=== PATIENT | female | born 1985 | race Caucasian/White ===

== ENCOUNTER 2022-05-27 10:31 | Outpatient (CLI) | payer BC, SELFPAY ==
[2022-05-27 22:00] LABS: Albumin* 4.3 g/dL (3.3-5.0)
[2022-05-27 22:01] LABS: Chloride* 105 mmol/L (96-114); Potassium* 4.5 mmol/L (3.6-5.1); Sodium* 138 mmol/L (135-149)
[2022-05-27 22:03] LABS: Aspartate Amino Transferase* 22 U/L (12-35); Bilirubin Total* 0.4 mg/dL (0.1-1.5); Blood Urea Nitrogen* 15 mg/dL (5-24); Carbon Dioxide* 27 mmol/L (20-32); Cholesterol* 252 mg/dL (90-199); Creatinine* 0.6 mg/dL (0.5-1.5); Estimated Glomerular Filt Rate 120 ml/min; Total Protein* 7.6 g/dL (6.0-8.3)
[2022-05-27 22:04] LABS: Alanine Aminotransferase* 14 U/L (4-35); Alkaline Phosphatase* 106 U/L (40-150); Calcium* 9.1 mg/dL (8.4-10.6); Glucose* 97 mg/dL (60-115); HDL Cholesterol* 55 mg/dL (>=50); LDL Cholesterol Calculated 168 mg/dL (<100); Triglycerides* 143 mg/dL (40-149)
[2022-05-27 22:39] LABS: TSH With Reflex to FT4* 0.274 uIU/mL (0.270-4.200)
== END 2022-05-27 10:32 | disposition home or self-care (01) ==
PROVIDERS: PCP Physician Assistant Medical; Visit Provider Physician Assistant Medical
DX: Z01.419 Encounter for gynecological examination (general) (routine) without abnormal findings (principal); R22.31 Localized swelling, mass and lump, right upper limb; F41.9 Anxiety disorder, unspecified; Z13.6 Encounter for screening for cardiovascular disorders; Z13.29 Encounter for screening for other suspected endocrine disorder
CPT/HCPCS: 80053; 80061; 84443; 87624; 88175

== ENCOUNTER 2022-07-20 08:02 | Outpatient (CLI) | payer BC, SELFPAY ==
--- NOTE | 2022-07-20 08:15 | MR_ITS ---
[address] [address] Phone:?[phone] Fax:?[phone] Referring Physician Information: Violeta Anthony [address] [facility] [address] Phone:?[phone] Fax:?[phone] Patient:Peter Nichols D.O.B:?1985 Sex:?Female Phone:?[phone] [facility] MRN:?[id number] Exam Date:?07/20/2022 ? EXAM: MRI of the RIGHT KNEE, without contrast CLINICAL HISTORY: Right knee pain. Evaluate for medial meniscal pathology. COMPARISONS: None available. TECHNICAL: MR sequences of the right knee: sagittals: PD, PDFS coronals: PD, STIR axials: PD, T2 FS CONTRAST: None SEDATION: None FINDINGS: Bones: No fracture, bone marrow contusion, or other suspicious bone marrow signal abnormality. Patellofemoral joint: Cartilage: Intact. Retinacula: The medial and lateral retinacula are intact. Fat pads: Edema-like signal within the superolateral portion of the infrapatellar fat pad is associated with patellar tendon-lateral femoral condyle friction/patellar maltracking. The Insall Salvati index measures approximately 1.30. The lateral trochlear inclination angle measures approximately 19 degrees. The tibial tubercle to trochlear groove distance measures approximately 2.1 cm. Knee joint: Effusion: Physiologic amount of joint fluid. Popliteal cyst: None. Intra-articular bodies: None. Medial compartment: Medial meniscus: Intact. Cartilage: Intact. Lateral compartment: Lateral meniscus: Intact. Cartilage: Intact. Ligaments: Anterior cruciate ligament: Intact. Posterior cruciate ligament: Intact. Medial collateral ligament: Intact. Posterior oblique ligament: Intact. Fibular collateral ligament: Intact. Posterolateral corner: The distal biceps femoris tendon, iliotibial band, popliteus tendon, popliteus muscle, popliteofibular ligament, and arcuate ligament are intact. Posteromedial corner: The semimembranosus and pes anserine tendons are intact. Extensor mechanism: Patellar tendon: Intact. Quadriceps tendon: Intact, without tendinopathy. IMPRESSION: 1. Edema-like signal within the superolateral portion of the infrapatellar fat pad is associated with patellar tendon-lateral femoral condyle friction/patellar maltracking. The tibial tubercle to trochlear groove distance measures approximately 2.1 cm. Borderline increased Insall Salvati index of approximately 1.30. 2. Otherwise, unremarkable MRI of the right knee without osseous pathology, ligamentous injury, tendinous pathology, meniscal tear, or chondral pathology. RCB Electronically signed on 07/20/2022 11:58:00 AM by Silvestre Smith M.D.
== END 2022-07-20 08:03 | disposition home or self-care (01) ==
LOC: MRI 08:03
PROVIDERS: PCP Physician Assistant Medical; Visit Provider Physician Assistant Surgical
DX: M25.561 Pain in right knee (principal)
CPT/HCPCS: 73721

== ENCOUNTER 2022-07-29 09:13 | Outpatient (RCR) | payer BC, SELFPAY | END 2023-05-12 23:59 | disposition home or self-care (01) | PROVIDERS: PCP Physician Assistant Medical; Visit Provider Physician Assistant Surgical | DX: M25.561 Pain in right knee (principal); Z51.89 Encounter for other specified aftercare | CPT/HCPCS: 97110; 97162 ==

== ENCOUNTER 2022-08-30 09:43 | Emergency (ER) | payer BC, SELFPAY ==
[2022-08-30 10:07] VITALS: BP 109/67; PULSE 89; RESP 18; TEMP 36.6; O2SAT 100; BMI 28.0
--- NOTE | 2022-08-30 10:28 | ED_ITS ---
HPI - General Adult General Time Seen by Provider: 10:29 Date Seen: 08/30/22 Chief complaint: Fall/Minor Trauma Stated complaint: Fell down stairs hurt tailbone Time Seen by Provider: 08/30/22 10:28 Source: patient, RN notes reviewed and old records reviewed Mode of arrival: ambulatory Limitations: no limitations History of Present Illness HPI narrative: Samia is a very pleasant 37-year-old female with a history of reactive airway, depression anxiety who comes to the emergency room after falling down her stairs today. Patient fell onto her buttocks and since that time has had pain in her tailbone and in her right buttock. Immediately she states that she was lightheaded and shaky but that has since resolved. Denies back pain but notes pain in her tailbone. She does understand that treatment of both a fractured tailbone and bruising would be the same but she wishes to have an x-ray. She denies injury of her head neck, loss of consciousness or any other complaints at this time. Patient denies any radiation of the discomfort into the legs or weakness of the legs. Related Data Previous Rx's Medication Instructions Recorded albuterol sulfate 90 mcg/actuation 2 puff inhalation Q6H PRN 08/23/22 aerosol inhaler shortness of breath or wheezing #8.5 grams Allergies Allergy/AdvReac Type Severity Reaction Status Date / Time doxycycline Allergy Severe itching Verified 07/13/22 12:55 Sulfamethoxazole / Allergy Mild Hives Uncoded 07/13/22 12:55 trimethoprim Review of Systems Status of ROS: Reports: 10 or more systems reviewed and unremarkable except as noted in History and below Const: Denies: fever Eyes: Denies: change in vision ENMT: Denies: throat pain or difficulty swallowing Cardio: Denies: chest pain, swelling of feet/ankles or shortness of breath with exertion Resp: Denies: shortness of breath or cough GI: Denies: abdominal pain, nausea, vomiting or difficulty swallowing : Denies: painful urination Musculo: Reports: back pain (Tailbone and right buttock) Neuro: Denies: headache, numbness in extremities or weakness in extremities PFSH PFSH Surgical History History of third molar tooth extraction (1999) Family History Paternal Grandmother Depression Uncle Diabetes Maternal Grandfather Skin cancer Other Lung cancer Social History Narrative: does not have regular exercise regimen excessive drinking of alcohol - non-smoker Engaged, not employed currently, 1 child (13 yo boy) Smoking Status: Never smoker Little interest or pleasure in doing things: several days Feeling down, depressed, or hopeless: several days Exam Narrative: Exam Narrative: Patient is alert and oriented. Nontoxic in appearance. Lying in exam room 5 on her left side. EOM is full. Pupils reactive. Neck is atraumatic and normocephalic. No midline tenderness cervical spine. Range of motion full. Palpation down thoracic and lumbar spine without tenderness. Mild discomfort with palpation over the right buttock. No bruising noted at this time. Lower extremities without edema. Sensation and motor fully intact. Const: Vital Signs, click to edit/add: Vital Signs - 24 hr 08/30/22 10:07 Temperature 97.9 F Pulse Rate [Right Pulse Oximeter] 89 Respiratory Rate 18 Blood Pressure [Ri ght Upper Arm] 109/67 Pulse Oximetry 100 Oxygen Delivery Me thod Room Air Course Vital Signs Vital signs: Initial Vital Signs Temperature 97.9 F 08/30/22 10:07 Temperature Source Temporal Artery Scan 08/30/22 10:07 Pulse Rate 89 08/30/22 10:07 Respiratory Rate 18 08/30/22 10:07 Blood Pressure 109/67 08/30/22 10:07 Blood Pressure Mean 81 08/30/22 10:07 Blood Pressure Position Right Lateral 08/30/22 10:07 Pulse Oximetry 100 08/30/22 10:07 Oxygen Delivery Method 08/30/22 10:07 Vital Signs Temperature 97.9 F 08/30/22 10:07 Pulse Rate 89 08/30/22 10:07 Respiratory Rate 18 08/30/22 10:07 Blood Pressure 109/67 08/30/22 10:07 Pulse Oximetry 100 08/30/22 10:07 Oxygen Delivery Method 08/30/22 10:07 Temperature 97.9 F 08/30/22 10:07 Pulse Rate 89 08/30/22 10:07 Respiratory Rate 18 08/30/22 10:07 Blood Pressure 109/67 08/30/22 10:07 Pulse Oximetry 100 08/30/22 10:07 Oxygen Delivery Method 08/30/22 10:07 Medical Decision Making MDM Narrative Medical decision making narrative: 1. Soft tissue injury coccyx-suggest ibuprofen or Tylenol as needed for discomfort. Patient thinks she may have had some bleeding from her GI tract in the past with ibuprofen. She has successfully taken it since that time but only sporadically. I do think she will need an anti-inflammatory but recommend she start with Tylenol and then take ibuprofen as needed. While on ibuprofen suggest the use of omeprazole daily. I do not note any GI bleed in her history. A course recommend a donut for sitting comfort. Ice to area of discomfort for the next 48-72 hours. Limit activity. 2. Fall-no prodromal symptoms. 3. Disposition -home with . While she has been sitting here she is now getting gradually more sore. She shows me elbow with some slight superficial abrasion but has full movement at the elbow. Also notes that some of her pain is radiating into her low back. No point tenderness upon prior exam. Return as needed for worsening symptoms. Did offer muscle relaxer Flexeril but patient declines at this time. Again suggest Tylenol initially for pain but may follow-up with ibuprofen if needed. If on ibuprofen omeprazole daily. Medical Records Medical records reviewed: Yes I reviewed the patient's medical records Imaging Data Pelvis x-ray: Attestation: I have reviewed the pertinent imaging results. My impression: No acute fracture Radiologist's impression: No acute findings Coccyx x-ray: Attestation: I have reviewed the pertinent imaging results. My impression: No evidence of a fracture Radiologist's impression: No fracture Discharge Plan Discharge Clinical Impression: Acute coccygeal pain Patient Disposition: Home, Self-Care Condition: Unchanged Additional Instructions: Suggest the use of ice as needed. Ibuprofen or Tylenol with ibuprofen being superior is suggested. During times where you need to use ibuprofen I do suggest taking [id number]-ylhyged omeprazole in order to protect her stomach since you have had some problems in the past. Suggest buying a donut pillow. Seek medical attention as needed. Prescriptions: No Action albuterol sulfate 90 mcg/actuation HFA aerosol inhaler 2 puff inhalation Q6H PRN (Reason: shortness of breath or wheezing) Qty: 8.5 6RF Follow Up/Referrals: Tavia Parikh PA-C [Primary Care Provider] - Stand Alone Forms: [employer] Info Instructions
--- NOTE | 2022-08-30 10:33 | CRLHL7_ITS ---
For Patients: As a result of the Cures Act, medical imaging exams and procedure reports are released immediately into your electronic medical record. You may view this report before your referring provider. If you have questions, please contact your health care provider. Indication: Fall Technique: AP pelvis Comparison: No comparison Findings: Normal alignment. No acute fractures or acute osseous abnormalities. Dictated by Caren Manuel MD @ 08/30/2022 11:52:18 AM (Electronically Signed)
--- NOTE | 2022-08-30 10:33 | CRLHL7_ITS ---
For Patients: As a result of the Cures Act, medical imaging exams and procedure reports are released immediately into your electronic medical record. You may view this report before your referring provider. If you have questions, please contact your health care provider. Indication: Fall Technique: Sacrum coccyx views Comparison: No comparison Findings: Normal alignment no acute fractures are seen. Dictated by Caren Manuel MD @ 08/30/2022 11:53:13 AM (Electronically Signed)
== END 2022-08-30 12:25 | disposition home or self-care (01) ==
PROVIDERS: Emergency Provider Family Medicine; PCP Physician Assistant Medical
DX: S30.0XXA Contusion of lower back and pelvis, initial encounter (principal); W10.9XXA Fall (on) (from) unspecified stairs and steps, initial encounter; Y93.9 Activity, unspecified; Y92.9 Unspecified place or not applicable; Y99.9 Unspecified external cause status
CPT/HCPCS: 72170; 72220; 99283

== ENCOUNTER 2025-05-25 18:04 | Emergency (ER) | payer OTHER, SELFPAY ==
[2025-05-25] VITALS (10 sets, daily range): BP systolic 110–129; BP diastolic 63–86; PULSE 89–108; RESP 11–27; TEMP 36.2; O2SAT 97–100; BMI 28.3
--- NOTE | 2025-05-25 18:17 | ED_ITS ---
HPI - General Adult General Chief complaint: Chest Pain Stated complaint: Potential Heart Attack Time Seen by Provider: 05/25/25 18:06 History of Present Illness HPI narrative: patient was in the garden cutting some leaves and suddenly onset with feeling of super weak needing so go on hands and knees and be still for a while. felt as if going to pass out, diaphoretic, stomach pain like cramps, lower back pain , weak legs, left arm and foot tingling, numbing L forearm. unsure if [place] or heat stroke had in past with similar sx. 40-year-old woman presenting to the emergency department with concern of potential heart attack. In any case was feeling really bad. She had been doing some gardening, stooping, bending and was suddenly hit with feeling spots of strange color in her vision and tunnel vision and feeling extremely weak such that she was going to pass out if she did get herself to the ground quickly. Does not note that her heart was racing or feeling irregular. Called for help. Got in the house and realized she was sweating all over. Had been noting some tingling in her left forearm and left foot as well. Admittedly she was told that needed to calm down; she feels like she was breathing however she needed to at the time. Thought her left eye might have felt funny as well. Similar episode a couple of months ago where had been at a [employer]. It sounds like would have had some drinks. Later went to get out of bed and go to the bathroom and then suddenly hit with similar symptoms and had to lie down in the carey and just could not get up. She thought it was probably related to drinking I believe. Does have a history of GERD but sounds like this is under control. She admits that she does have anxiety. Today this episode seems to have lasted about an hour with little residual tingling yet. She does report that has frequent headaches particularly frontal. Feels like she is often congested. Related Data Home Medications ?Medication ?Instructions ?Recorded ?Confirmed No Known Home Medications 05/25/2512/18 Allergies Allergy/AdvReac Type Severity Reaction Status Date / Time doxycycline Allergy Severe itching Verified 05/25/25 18:14 Sulfamethoxazole / Allergy Mild Hives Uncoded 12/01/22 12:46 trimethoprim Review of Systems Status of ROS: Reports: 6 or more systems reviewed and unremarkable except as noted in History and below [facility] Medical History GERD (gastroesophageal reflux disease) ?K21.9 - Gastro-esophageal reflux disease without esophagitis (ICD-10) Surgical History History of third molar tooth extraction (1999) ?K08.409 - Partial loss of teeth, unspecified cause, unspecified class (ICD- 10) Family History Paternal Grandmother Depression Uncle Diabetes Maternal Grandfather Skin cancer Other Lung cancer Social History Narrative: does not have regular exercise regimen excessive drinking of alcohol - non-smoker Engaged, not employed currently, 1 child (13 yo boy) Smoking Status: Never smoker Do you use any of these nicotine containing products: None How often do you have a drink containing alcohol: never AUDIT-C Alcohol total score: 0 Non-prescribed substance use: denies use Exam Narrative: Exam Narrative: Pleasant. Seems concerned. Skin is warm and dry. Many freckles. Extremities are well perfused without edema. She does have various tattoos. Is moving all extremities smoothly, fluidly with good strength. Cranial nerves 2-12 intact. Lungs are clear. Heart in mildly elevated rate and regular rhythm without murmur rub or gallop. Abdomen is soft nontender. TMs are clear. Const: Vital Signs, click to edit/add: Vital Signs - 24 hr 05/25/25 18:06 05/25/25 18:38 05/25/25 18:45 Temperature 97.2 F L Pulse Rate 90 Pulse Rate [Pulse Oximeter] 107 H Pulse Rate [orthos tatic lying] Pulse Rate [orthos tatic sitting] Pulse Rate [orthos tatic standing] Respiratory Rate 18 20 Blood Pressure 119/74 Blood Pressure [Ri ght Upper Arm] 123/80 Blood Pressure [or thostatic lying] Blood Pressure [or thostatic sitting] Blood Pressure [or thostatic standing ] Pulse Oximetry 99 100 Oxygen Delivery Me thod Room Air 05/25/25 19:00 05/25/25 19:01 05/25/25 19:15 Temperature Pulse Rate 92 89 95 Pulse Rate [Pulse Oximeter] Pulse Rate [orthos tatic lying] Pulse Rate [orthos tatic sitting] Pulse Rate [orthos tatic standing] Respiratory Rate 13 18 11 L Blood Pressure 119/63 Blood Pressure [Ri ght Upper Arm] Blood Pressure [or thostatic lying] Blood Pressure [or thostatic sitting] Blood Pressure [or thostatic standing ] Pulse Oximetry 97 97 98 Oxygen Delivery Me thod 05/25/25 19:30 05/25/25 19:30 05/25/25 19:32 Temperature Pulse Rate 93 105 H Pulse Rate [Pulse Oximeter] Pulse Rate [orthos tatic lying] 92 Pulse Rate [orthos tatic sitting] 95 Pulse Rate [orthos tatic standing] 97 Respiratory Rate 12 15 Blood Pressure 110/69 Blood Pressure [Ri ght Upper Arm] Blood Pressure [or thostatic lying] 117/73 Blood Pressure [or thostatic sitting] 117/79 Blood Pressure [or thostatic standing ] 129/86 Pulse Oximetry 97 99 Oxygen Delivery Me thod 05/25/25 19:33 05/25/25 19:35 Temperature Pulse Rate 108 H 101 H Pulse Rate [Pulse Oximeter] Pulse Rate [orthos tatic lying] Pulse Rate [orthos tatic sitting] Pulse Rate [orthos tatic standing] Respiratory Rate 18 27 H Blood Pressure 117/73 129/86 Blood Pressure [Ri ght Upper Arm] Blood Pressure [or thostatic lying] Blood Pressure [or thostatic sitting] Blood Pressure [or thostatic standing ] Pulse Oximetry 98 98 Oxygen Delivery Me thod Documenting provider has reviewed patient's vital signs: yes Course Vital Signs Vital signs: Initial Vital Signs Temperature 97.2 F L 05/25/25 18:06 Temperature Source Temporal Artery Scan 05/25/25 18:06 Pulse Rate 107 H 05/25/25 18:06 Respiratory Rate 18 05/25/25 18:06 Blood Pressure 123/80 05/25/25 18:06 Blood Pressure Mean 94 05/25/25 18:06 Blood Pressure Position Sitting 05/25/25 18:06 Pulse Oximetry 99 05/25/25 18:06 Oxygen Delivery Method Room Air 05/25/25 18:06 Vital Signs Temperature 97.2 F L 05/25/25 18:06 Pulse Rate 107 H 05/25/25 18:06 Respiratory Rate 18 05/25/25 18:06 Blood Pressure 123/80 05/25/25 18:06 Pulse Oximetry 99 05/25/25 18:06 Oxygen Delivery Method Room Air 05/25/25 18:06 Temperature 97.2 F L 05/25/25 18:06 Pulse Rate 101 H 05/25/25 19:35 Respiratory Rate 27 H 05/25/25 19:35 Blood Pressure 129/86 05/25/25 19:35 Pulse Oximetry 98 05/25/25 19:35 Oxygen Delivery Method Room Air 05/25/25 18:06 Medical Decision Making MDM Narrative Medical decision making narrative: This could have been a vasovagal reaction or dysrhythmia/tachyarrhythmia of some sort exacerbated by anxiety as well. Seems atypical for CVA. Not complaining of significant headache either. No history of POTS. She does feel that heat stroke which she has had symptoms in the past, is unlikely. I am inclined to agree particularly given mild weather today, nor do vitals or clinical exam s uggest that. With essential resolution of symptoms unlikely to be significant pulmonary embolus. Is there a demyelinating disorder? Absent symptoms though between these 2 episodes. Better evaluated perhaps with MRI with and without. Will place on litigation secretary monitor to monitor rhythm. Check for evidence of cardiac injury. Monitor for further event. Might benefit from longer-term cardiac monitoring. EKG independently reviewed by me shows a sinus rhythm. Lower voltage. Rate of 95. Orthostatics are normal other than she feels like she is on a boat when she is sitting or standing. I suppose this may well have been an attack of vertigo. Then precipitated some vasovagal reaction with worsening from hyperventilation. Labs are reassuring including repeat troponin. During time monitoring emergency department without event on monitor. Continues to feel improved. We did discuss potential longer-term cardiac monitoring; she prefers to defer this to follow-up if needed. See patient discharge plan for further discussion Thankfully your workup here is essentially normal. I would follow-up with your primary care provider for consideration of further evaluation. This might include assistance by physical therapy considering possible cause being inner ear. This might involve placement cardiac rhythm monitor for longer period of time. This might also involve MRI of your brain. Stay well-hydrated. Return for persistent recurrence, severe headache, chest pain, shortness of breath, new and focal weakness. Medical Records Medical records reviewed: Yes I reviewed the patient's medical records Lab Data Labs: Lab Results 05/25/25 05/25/25 05/25/25 Range/Units 18:34 18:41 20:39 WBC 9.81 (4.50-11.00) K/uL RBC 4.65 (4.00-5.20) m/uL Hgb 12.3 (12.0-16.0) gm/dL Hct 38.7 (33.0-51.0) % MCV 83 (80-100) fL MCH 27 (26-34) pg MCHC 32 (32-36) gm/dL RDW Coeff of Sarina 12.7 (11.5-15.5) % Plt Count 334 (140-440) K/uL Neut % (Auto) 69.9 (42.0-72.0) % Lymph % (Auto) 20.4 (20-44) % [place] % (Auto) 7.6 (0.0-11.0) % Eos % (Auto) 1.4 (0.0-7.0) % Baso % (Auto) 0.5 (0.0-3.0) % Neut # (Auto) 6.85 (1.7-7.0) K/uL Lymph # (Auto) 2.00 (0.90-2.90) K/uL [place] # (Auto) 0.70 (0.00-0.90) K/UL Eos # (Auto) 0.14 (0.00-0.50) K/uL Baso # (Auto) 0.05 (0.00-0.30) K/uL Abs Immat Gran (auto) 0.02 (0.00-0.30) K/uL Imm/Tot Granulo (auto) 0.2 % Sodium 138 (135-149) mmol/L Potassium 3.5 L (3.6-5.1) mmol/L Chloride 105 (96-114) mmol/L Carbon Dioxide 26 (20-32) mmol/L Anion Gap 7 (7-15) mEq/L BUN 11 (5-24) mg/dL Creatinine 0.6 (0.5-1.5) mg/dL Estimated Creat Clear 109.78 Estimated GFR 118 ml/min Glucose 138 H (60-115) mg/dL Calcium 9.0 (8.4-10.6) mg/dL Troponin I < 0.01 (0.01-0.04) ng/mL C-Reactive Protein < 0.5 L (0.5-1.0) mg/dL NT-Pro-B Natriuret Pep 36 (See Note) pg/mL POC Troponin I 0.00 L 0.00 L (0.01-0.04) ng/ml Discharge Plan Discharge Clinical Impression: Near syncope Patient Disposition: Home w/ Parent or Adult Condition: Improved Additional Instructions: Thankfully your workup here is essentially normal. I would follow-up with your primary care provider for consideration of further evaluation. This might include assistance by physical therapy considering possible cause being inner ear. This might involve placement cardiac rhythm monitor for longer period of time. This might also involve MRI of your brain. Stay well-hydrated. Return for persistent recurrence, severe headache, chest pain, shortness of breath, new and focal weakness. Prescriptions: No Action No Known Home Medications Follow Up/Referrals: Tavia Parikh PA-C [Primary Care Provider, Family Practice] Stand Alone Forms: [employer] Info Instructions
[2025-05-25 18:52] LABS: Hematocrit 38.7 % (33.0-51.0); Hemoglobin* 12.3 gm/dL (12.0-16.0); Immature Granulocytes Abs Auto 0.02 K/uL (0.00-0.30); Immature Granulocytes Pct Auto 0.2 %; Lymphocytes Absolute Auto 2.00 K/uL (0.90-2.90); Mean Corpuscular HGB Conc 32 gm/dL (32-36); Mean Corpuscular Hemoglobin 27 pg (26-34); Mean Corpuscular Volume 83 fL (80-100); RDW Coefficient of Variation % 12.7 % (11.5-15.5); Red Blood Count 4.65 m/uL (4.00-5.20); White Blood Count* 9.81 K/uL (4.50-11.00)
[2025-05-25 18:54] LABS: Troponin, Point-of-Care* 0.00 ng/ml (0.01-0.04)
[2025-05-25 18:56] LABS: Slide Review Reflex No
[2025-05-25 19:05] LABS: Chloride* 105 mmol/L (96-114); Potassium* 3.5 mmol/L (3.6-5.1); Sodium* 138 mmol/L (135-149)
[2025-05-25 19:08] LABS: Blood Urea Nitrogen* 11 mg/dL (5-24); Creatinine* 0.6 mg/dL (0.5-1.5); Est. Creatinine Clearance* 109.78; Estimated Glomerular Filt Rate 118 ml/min
[2025-05-25 19:09] LABS: Anion Gap 7 mEq/L (7-15); Calcium* 9.0 mg/dL (8.4-10.6); Carbon Dioxide* 26 mmol/L (20-32); Glucose* 138 mg/dL (60-115)
[2025-05-25 19:19] LABS: NT Pro B Type NatriureticPept* 36 pg/mL (See Note)
[2025-05-25 20:41] LABS: Troponin, Point-of-Care* 0.00 ng/ml (0.01-0.04)
== END 2025-05-25 21:13 | disposition home or self-care (01) ==
PROVIDERS: Emergency Provider Family Medicine; PCP Physician Assistant Medical
DX: R55 Syncope and collapse (principal); F41.9 Anxiety disorder, unspecified; R06.4 Hyperventilation
CPT/HCPCS: 36415; 80048; 83880; 84484; 85025; 86140; 93005; 94761; 99284